=== PATIENT | female | born 2000 ===

== ENCOUNTER 2023-05-14 07:13 | Day surgery (SDC) | payer OTHER ==
[2023-05-09 11:22] LABS: HEMATOCRIT 37.2 % (36.0-45.00); HEMOGLOBIN 12.8 g/dL (12.0-15.00); MEAN CELL VOLUME 86.1 fL (80.00-100.00); MEAN CORPUSCULAR HEMOGLOBIN 29.7 pg (27.00-32.0); MEAN CORPUSCULAR HGB CONC 34.4 g/dl (32.0-36.0); PLATELET COUNT 298 K/uL (150-450); RED BLOOD COUNT 4.32 M/uL (4.00-6.00); RED CELL DISTRIBUTION WIDTH 13.3 % (11.5-14.5)
[2023-05-09 11:24] LABS: PH,URINE 5.5 (5.0-8.0); URINE APPEARANCE Clear; URINE BILIRRUBIN Negative (NEGATIVE); URINE BLOOD Negative; URINE COLOR Yellow; URINE GLUCOSE Negative (NEGATIVE); URINE LEUKOCYTE Negative; URINE NITRATE Negative; URINE PROTEIN Negative (NEGATIVE)
[2023-05-09 11:26] LABS: URINE BACTERIA 2221.2 uL (0.0-1933); URINE EPITHELIAL CELLS 16.8 uL (0.0-38.8); URINE RBC 6.4 uL (0.0-20.8); URINE WBC 5.4 uL (0.0-23.2)
[2023-05-09 11:43] LABS: INR 1.01; PARTIAL THROMBOPLASTIN TIME 29.4 SECONDS (22.0-34.0); PROTHROMBIN TIME 10.6 SECONDS (9.0-11.5)
[2023-05-09 12:33] LABS: ALBUMIN 4.1 gm/dL (3.4-5.0); BILIRUBIN TOTAL 0.23 mg/dL (0.3-1.2); CALCIUM 8.7 mg/dL (8.5-10.1); CREATININE SERUM 0.54 mg/dL (0.55-1.02); GFR 142.51; GLOBULINA 3.6 G/DL (2.4-3.5); POTASSIUM 4.02 mEq/L (3.5-5.1); TOTAL PROTEIN 7.7 gm/dL (6.4-8.2)
== END 2023-05-14 15:50 | disposition home or self-care (01) ==
LOC: CIR.AMB 07:13
PROVIDERS: ATTEND Obstetrics & Gynecology Gynecology
DX: N93.8 Other specified abnormal uterine and vaginal bleeding (principal); N84.0 Polyp of corpus uteri; R10.2 Pelvic and perineal pain